=== PATIENT | female | born 1980 | race Caucasian/White ===

== ENCOUNTER 2025-06-06 17:25 | Emergency (ER) | payer BC ==
[~2025-06-06] VITALS: Ht 170.1 cm; Wt 158.8 kg
[~2025-06-06 17:25] MED LIST: COLACE100 MG PO; HYDROCODONE-AC1 EAC1 PO; LOSARTAN POTASS25 M1 PO
[2025-06-06] MEDS ORDERED: CEPHALEXIN 500 MG CAP PO ONE (21:30)
[2025-06-06] MEDS ORDERED: CEPHALEXIN500 M1 PO (21:30)
== END 2025-06-06 21:35 | disposition home or self-care (01) ==
LOC: ED 17:25
DX: L02.511 Cutaneous abscess of right hand (principal); I10 Essential (primary) hypertension; J45.909 Unspecified asthma, uncomplicated; G43.909 Migraine, unspecified, not intractable, without status migrainosus; Z79.899 Other long term (current) drug therapy; Z91.040 Latex allergy status; Z98.890 Other specified postprocedural states

== ENCOUNTER 2025-06-16 22:48 | Emergency (ER) | payer BC ==
[~2025-06-16] VITALS: Ht 170.1 cm; Wt 165.7 kg
[~2025-06-16 22:48] MED LIST changes: +CEPHALEXIN500 M1 PO
[2025-06-16] MEDS ORDERED: SODIUM CHLORIDE 0.9% 1,000 ML IV ONE (23:00)
[2025-06-16 23:46] LABS: BASO # 0.1 10*3/uL (0.0-0.1); BASO % 0.6 % (0.0-1.0); EOS # 0.1 10*3/uL (0.0-0.4); EOS % 1.0 % (1.0-4.0); MEAN CELL VOLUME 87.1 fl (81.0-99.0); MEAN CORPUSCULAR HGB 29.2 pg (27.0-31.0); MEAN PLATELET VOLUME 8.9 fl (9.6-12.3); MONO # 0.6 10*3/uL (0.1-1.0); MONO % 6.2 % (3.0-9.0); NEUT # 5.6 10*3/uL (2.3-7.9); NEUT % 58.5 % (47.0-73.0); NUCLEATED RED BLOOD CELL 0.0 % (0.0-0.0); NUCLEATED RED BLOOD CELL 0.0 10*3/uL (0.0-0.0); PLATELET COUNT AUTOMATED 304 10*3/uL (130-400); RED CELL DISTRI WIDTH 12.3 % (0-14.5)
[2025-06-17 00:01] LABS: ACT PARTIAL THROMBO TIME 25.4 SECONDS (20.0-32.1)
[2025-06-17 00:05] LABS: BUN 16 mg/dl (9-23)
== END 2025-06-17 01:30 | disposition home or self-care (01) ==
LOC: ED 22:48
PROVIDERS: Internal Medicine
DX: F41.0 Panic disorder [episodic paroxysmal anxiety] (principal); E66.9 Obesity, unspecified; Z68.30 Body mass index [BMI] 30.0-30.9, adult; Z91.048 Other nonmedicinal substance allergy status; Z91.040 Latex allergy status; Z79.899 Other long term (current) drug therapy; Z98.890 Other specified postprocedural states